=== PATIENT | female | born 1950 | race Caucasian/White ===

== ENCOUNTER 2016-11-25 07:26 | Emergency (ER) | payer OTHER ==
[~2016-11-25] VITALS: Ht 160 cm; Wt 60.5 kg
[2016-11-25 08:35] LABS: HEMATOCRIT 45.7 % (36.0-46.0); MCH 33.2 PG (29.0-34.0); MCHC 36.8 G/DL (30.0-36.0); MCV 90.3 FL (83-99); MEAN PLAT.VOLUME 8.9 uM^3 (9.5-12.4); PLATELET COUNT 257 K/uL (156-360); RBC DIS.WIDTH-CV 12.9 % (11.8-14.6); RBC DIS.WIDTH-SD 41.9 % (39-53); RED BLOOD COUNT 5.06 M/uL (3.80-5.20); WHITE BLOOD COUNT 11.1 K/uL (4.1-10.2)
[2016-11-25 08:36] LABS: CARBON DIOXIDE (BICARBONATE) 35.7 MEQ/L (20-31)
[2016-11-25 08:50] LABS: CHLORIDE 91 mEq/L (99-109); POTASSIUM 3.6 mEq/L (3.7-5.4); SODIUM 131 mEq/L (136-147)
[2016-11-25 08:52] LABS: GLUCOSE 100 mg/dL (70-99)
[2016-11-25 08:53] LABS: ANION GAP 13 MEQ/L (2-14)
[2016-11-25 08:54] LABS: TOTAL BILIRUBIN 1.3 mg/dL (0.0-1.0)
[2016-11-25 08:56] LABS: ALKALINE PHOSPHATASE 80 IU/L (3-129); GFR ESTIMATE (CALCULATED) > 59 mL/min/
[2016-11-25 08:57] LABS: UREA NITROGEN (BUN) 10 mg/dL (9-23)
[2016-11-25] MEDS ORDERED: PROVENTIL,2.5 MG/3 M IH (10:17)
[2016-11-25] MEDS ORDERED: TESSALON PERLE100 MG PO (10:17)
[2016-11-25] MEDS ORDERED: ALBUTEROL2.5 MG/3 M IH (10:26)
[2016-11-25] MEDS ORDERED: C COMPLEX500 MG PO (10:26)
[2016-11-25] MEDS ORDERED: PROAIR HFA8.5 GM IH (10:26)
[2016-11-25] MEDS ORDERED: ALENDRONATE SOD70 MG PO (10:26)
[2016-11-25] MEDS ORDERED: ATENOLOL100 MG PO (10:27)
[2016-11-25] MEDS ORDERED: LO-DOSE ASPIRIN81 M1 PO (10:27)
[2016-11-25] MEDS ORDERED: CHILDREN'S1000 UNIT PO (10:28)
[2016-11-25] MEDS ORDERED: LOSARTAN POTASS25 MG PO (10:28)
[2016-11-25] MEDS ORDERED: CARDIZEM CD120 MG PO (10:28)
[2016-11-25] MEDS ORDERED: PRADAXA150 MG PO (10:28)
[2016-11-25] MEDS ORDERED: SYMBICORT60 INHALA1 IH (10:28)
[2016-11-25] MEDS ORDERED: ACID GONE TABL1 EACH PO (10:29)
[2016-11-25] MEDS ORDERED: DAILY VALUE1 EACH PO (10:29)
[2016-11-25] MEDS ORDERED: DALIRESP500 MCG PO (10:29)
[2016-11-25 10:46] VITALS: BP 160/82
== END 2016-11-25 11:17 | disposition home or self-care (01) ==
LOC: EME 07:26
PROVIDERS: Nurse Practitioner Family
DX: J06.9 Acute upper respiratory infection, unspecified (principal); B34.9 Viral infection, unspecified; J30.2 Other seasonal allergic rhinitis; J44.9 Chronic obstructive pulmonary disease, unspecified; I48.91 Unspecified atrial fibrillation; I10 Essential (primary) hypertension; Z87.891 Personal history of nicotine dependence
CPT/HCPCS: 71020; 80053; 82803; 85027; 87651 90; 94640; 99281; 99284